=== PATIENT | female | born 1970 | race Two or more races ===

== ENCOUNTER 2019-05-04 09:20 | Day surgery (SDC) | payer OTHER | END 2019-05-04 14:10 | disposition home or self-care (01) | LOC: AMB-ENDOS 09:20 → ADM 13:45 → AMB-ENDOS 14:10 | DX: K57.30 Diverticulosis of large intestine without perforation or abscess without bleeding (principal); R19.4 Change in bowel habit; R93.5 Abnormal findings on diagnostic imaging of other abdominal regions, including retroperitoneum ==